=== PATIENT | male | born 1970 | race Caucasian/White ===

== ENCOUNTER 2024-01-29 11:16 | Emergency (ER) | payer OTHER, SELFPAY ==
[2024-01-29 11:19] VITALS: BP 147/99
--- NOTE | 2024-01-29 11:38 | ED.GENMED ---
History of Present Illness
General
Chief Complaint: Abdominal Symptoms
Source: patient and spouse
Time Seen by Provider: 01/29/24 11:26
History of Present Illness
History of Present Illness:
53-year-old male presents emergency department after first developing profuse watery diarrhea on Saturday morning which continues estimated to be every 2 hours. In addition to the diarrhea patient also developed vomiting last night noted throughout
the night. This is without blood. He overall feels very fatigued and dehydrated. He was able to tolerate a glass of water this morning, otherwise not tolerating anything by mouth. He describes diffuse crampy abdominal pain particularly right
before a bowel movement. He denies recent antibiotics, recent travel, recent spoiled food. He denies chest pain, shortness of breath, back pain, fever, chills. 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
improved more quickly.
Past History
Past History
ED Past Medical History: None
ED Past Surgical History: Cholecystectomy
Social History
Tobacco: Non-smoker
Alcohol: None
Personal:
Living: with family
Employment: Employed
Phy Exam
Physical Exam
Physical Exam:
GENERAL: Alert , in no apparent distress
EYE: pupils equal and reactive
NECK: Supple, no significant adenopathy.
ENT: o/p clr, mm dry
CARDIAC: Regular rate and rhythm .
LUNGS: Clear breath sounds bilaterally, no acute respiratory distress, no wheezes/rales/rhonchi
ABDOMEN: Soft, diffuse nonspecific tenderness, no r/g, no cvat
NEUROLOGICAL: Alert and oriented, no focal neuro deficits
SKIN: Warm and dry, skin intact.
MUSCULOSKELETAL: No edema, well perfused.
PSYCH: Normal and appropriate interaction.
Course
Orders/Labs/Results
Orders:
Orders
01/29/24 11:37
CT Abd/Pel (IV only)-DH only Urgent
Comment:
Reason For Exam: abd pain, d, v
Cardiac Monitoring- Treatment ONCE
0.9% Sodium Chloride 1000 ml [Nss] 1,000 ml IV BOLUS
Ondansetron Injectable [Zofran] 4 mg IV NOW STA
01/29/24 12:09
Complete Blood Count/No Diff Urgent
Comprehensive Metabolic Panel Urgent
Lipase Urgent
01/29/24 12:22
Stool Culture Urgent
SHELBY Source: Feces/Stool
Specimen Description:
Date Specimen was Collected: 01/29/24
Time Specimen was Collected: 12:11
01/29/24 14:58
0.9% Sodium Chloride 500 ml [Nss] 1,000 ml IV BOLUS
Abnormal Lab Results
01/29/24
12:09
WBC 16.0 H 10^3/uL
(4.8-10.8)
RBC 7.30 H 10^6/uL
(4.70-6.10)
Hgb 19.9 H g/dL
(13.0-18.0)
Hct 57.5 H %
(39.0-52.0)
MCV 78.8 L fL
(80.0-94.0)
RDW 17.0 H %
(11.5-14.5)
MPV 11.8 H fL
(7.4-10.4)
Carbon Dioxide 17 L mmol/L
(22-30)
BUN 31 H mg/dl
(9-20)
Creatinine 1.9 H mg/dL
(0.7-1.3)
Glucose 161 H mg/dl
(70-99)
Calcium 10.5 H mg/dl
(8.4-10.2)
Total Protein 9.1 H g/dl
(6.3-8.2)
Albumin 5.6 H g/dl
(3.5-5.0)
01/29/24 12:09
01/29/24 12:09
Vital Signs
Initial and Last Documented VS:
Initial Vital Signs
Temp Pulse Resp BP Pulse Ox
98.3 F 110 18 147/99 98
01/29/24 11:19 01/29/24 11:19 01/29/24 11:19 01/29/24 11:19 01/29/24 11:19
Last Documented Vital Signs
Temp Pulse Resp BP Pulse Ox
98.3 F 97 18 149/97 97
01/29/24 11:19 01/29/24 15:15 01/29/24 15:15 01/29/24 15:00 01/29/24 15:15
*Critical Care Note
Total Time (30-74mins, 75-104mins- exclusive of procedures): Not Applicable
Update Note
Update Note:
Patient presents to the Emergency Department with __nausea vomiting diarrhea and crampy abdominal pain
Number and Complexity of Problems Addressed at the Encounter
� Chronic conditions affecting care:
� Acute Exacerbation and/or Progression of Chronic Illness:
� Differential Diagnosis includes: Infectious colitis, gastroenteritis, ischemic colitis, etc. etc.
Amount and/or Complexity of Data to be Reviewed and Analyzed
� I performed an independent evaluation of and my interpretation is:
EKG:
CT:Mild splenomegaly.
Limited evaluation of intestinal tract without oral contrast demonstrating some nondistended fluid-filled loops of small bowel, nonobstructed. Enteritis cannot be excluded.
Some fluid-filled right colon possibly correlating with diarrheal state. No large bowel obstruction or free air.
Likely small fat only containing left inguinal hernia.
Small bilateral simple parapelvic renal cysts.
Prior cholecystectomy.
Xrays:
Laboratory Studies:
Other:
� Review of other/old records reveals:
� Clinical information was obtained by an independent historian: who is bedside
� Prescriptions/Medications Considered but not given:
� Further testing considered but not performed:
Risk of Complications and/or Morbidity or Mortality of Patient Management
� Social determinants of health affecting care:
� Discussion with other providers (PCP, Hospitalists, Consultants, etc):
� Escalation of care including admission/observation vs risk of discharge considered: 3:22 PM multiple reassessments of the patient. He has had several cups of water here, tolerated without difficulty nausea or vomiting. He
states repeatedly that he feels 'so much better', and he is certainly well-appearing nontoxic etc. Labs CAT scan reviewed. I printed out CAT scan for patient and and reviewed the incidental findings and importance of follow-up regarding.
Patient did provide a stool culture which is pending and they are aware of importance of follow-up. Patient has not had any further bowel movements since providing a culture over the last few hours. Abdomen is soft and nontender. Patient was
obviously quite volume depleted upon presentation, status post IV fluids here, and tolerating p.o., he would like to go home with continued hydration at home which I think is reasonable. Did discuss with patient and importance of follow-up as
well as reasons to return the emergency department including recurrent pain, fever, bleeding, etc.
ED Attending Note
-
Portions of this chart may have been created with voice recognition software.� Occasional wrong word or��sound alike� substitutions may have occurred due to the inherent limitations of voice recognition software.
Discharge Plan
Departure
Patient Disposition: Home (Routine Discharge)
Date of Disposition: 01/29/24
Time of Disposition: 15:55
Patient with high blood pressure during this ER visit?: Yes
Condition: Good
Discharge Problem:
Diarrhea, Dehydration
Instructions: Dehydration, Adult (DC), Acute Diarrhea, BLOOD PRESSURE
Prescriptions:
New
ondansetron HCl 4 mg tablet
4 mg PO Q8H PRN (Reason: nausea and vomiting) 4 Days Qty: 7 0RF
Referrals:
Navneet Orellana, [Family Provider] - Follow up in 2-3 days
Activity Restrictions/Additional Instructions:
SEE ATTACHED CAT SCAN REPORT, BRING THIS WITH YOU WHEN YOU SEE YOUR PRIMARY CARE DOCTOR AND CLOSE FOLLOW-UP REGARDING THESE FINDINGS. PLEASE CONTINUE WITH HYDRATION. IF YOU DEVELOP ABDOMINAL PAIN, FEVER, CHILLS, VOMITING, LOSS OF APPETITE,
RECURRENT DIARRHEA, BLEEDING, GET WORSE, DO NOT CONTINUE TO IMPROVE, OR OTHER WORRISOME SIGNS, PLEASE RETURN TO THE ER IMMEDIATELY!
Interventions
Interventions:
*Risk Screen - Suicide Last Done: 01/29/24 12:20
*General Assessment Last Done: 01/29/24 12:20
*Neglect/Abuse Screening Last Done: 01/29/24 12:20
ED- Fall Risk Assessment Last Done: 01/29/24 12:20
*ED COVID-19 Vaccine History Last Done: 01/29/24 12:20
VX-Lggcju-Olbljzpytr Assessment Last Done: 01/29/24 12:20
Discharge Date and Time
Print Language: FAROESE
[2024-01-29] MEDS: NSS 1000 IV ×2 (12:13→14:45)
[2024-01-29] MEDS: ZOFRAN 4 MG IV (12:17)
[2024-01-29 12:20] VITALS: BP 141/98
[2024-01-29 12:41] LABS: Hematocrit 57.5 % (39.0-52.0); Hemoglobin 19.9 g/dL (13.0-18.0); Mean Corp Hgb Conc. 34.6 g/dL (33.0-37.0); Mean Corpuscular Hgb 27.3 pg (27.0-31.0); Mean Corpuscular Volume 78.8 fL (80.0-94.0); Mean Platelet Volume 11.8 fL (7.4-10.4); Platelet Count 232 10^3/uL (130-400)
[2024-01-29 12:50] LABS: ALT (SGPT) 40 U/L (0-50); AST (SGOT) 22 U/L (17-59); Albumin 5.6 g/dl (3.5-5.0); Alkaline Phosphatase 45 U/L (38-126); Blood Urea Nitrogen 31 mg/dl (9-20); Calcium 10.5 mg/dl (8.4-10.2); Carbon Dioxide 17 mmol/L (22-30); Chloride 102 mmol/L (98-107); Glucose 161 mg/dl (70-99); Lipase 39 U/L (23-300); Potassium 4.6 mmol/L (3.5-5.1); Sodium 141 mmol/L (135-145); Total Protein 9.1 g/dl (6.3-8.2); eGFR 41.66
[2024-01-29 12:53] VITALS: BMI 34.5
[2024-01-29 13:00] VITALS: BP 149/101
--- NOTE | 2024-01-29 13:20 | EDRN ---
Pt asking to have ice chips or something to drink at this time.
--- NOTE | 2024-01-29 13:38 | EDRN ---
Pt asking to drink, will ask Dr. Adames via text.
--- NOTE | 2024-01-29 13:46 | EDRN ---
Dr. Pruett TT'd w/ pt's request.
[2024-01-29 14:00] VITALS: BP 140/95
[2024-01-29 15:00] VITALS: BP 149/97
--- NOTE | 2024-01-29 15:14 | EDRN ---
Dr. Adames in room w/pt at this time.
== END 2024-01-29 15:50 | disposition home or self-care (01) ==
LOC: EMR 11:16
PROVIDERS: EMERGENCY PHYSICIAN Emergency Medicine; FAMILY PHYSICIAN Family Medicine
DX: E86.0 Dehydration (principal); R19.7 Diarrhea, unspecified; R11.2 Nausea with vomiting, unspecified; Z90.49 Acquired absence of other specified parts of digestive tract
CPT/HCPCS: 96374; 96361; 99284; 74177; 80053; 83690; 85027; 87045; 87046; 87427; Q9967